=== PATIENT | female | born 1980 | race Caucasian/White ===

== ENCOUNTER 2018-07-08 10:34 | Emergency (ER) | payer OTHER, SELFPAY ==
--- NOTE | 2018-07-08 12:42 | RAD REPORT ---
EXAM DESCRIPTION: CT - Thorax Wo Con - 07/08/2018 12:12 pm CLINICAL HISTORY: Chest pain COMPARISON: None TECHNIQUE: Computed axial tomography of the chest was obtained. Contrast was not requested. All CT scans are performed using dose optimization technique as appropriate and may include automated exposure control or mA/KV adjustment according to patient size. FINDINGS: The evaluation of mediastinum, og and vessels is limited secondary to lack of IV contras t administration. The lungs are clear No mediastinal or hilar lymphadenopathy is seen. Stranding and small amount of fluid is present withi n the anterior mediastinum A pleural effusion is not present. IMPRESSION: Stranding and small amount of fluid within the anterior mediastinum is nonspecific. If t here is clinical suspicion for vascular injury then an enhanced CT scan would be recommended
--- NOTE | 2018-07-08 13:07 | EDPHYS ---
Physician Documentation [facility] Name: Shelby Rodriguez Age: 38 yrs Sex: Female : 1980 Arrival Date: 07/08/2018 Time: 10:36 Bed 14 Private MD: ED Physician Rafael Ingram HPI: 07/08 10:55 This 38 yrs old Female presents to ER via Ambulatory with complaints of Chest rn Wall Pain. 10:55 The patient or guardian reports chest pain that is located primarily in the anterior rn chest wall. The patient or guardian reports chest pain that is located primarily in the anterior chest wall, right. The pain does not radiate. The chest pain is described as aching. Modifying factors: The symptoms are alleviated by remaining still, the symptoms are aggravated by movement, palpation of area. Severity of pain: At its worst the pain was mild in the emergency department the pain is unchanged. The patient has not recently seen a physician. Reports about 3 weeks ago, stretching in AM, felt and heard a pop, has been hurting since then, no cough/sob/hemoptysis, no other trauma. Hurts to move arm and lifts things, hurts just to right of breastbone. . 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 - Social history:: Smoking status: Patient/guardian denies using tobacco. - Ebola Screening: : Patient negative for fever greater than or equal to 101.5 degrees Fahrenheit, and additional compatible Ebola Virus Disease symptoms Patient denies exposure to infectious person Patient denies travel to an Ebola-affected area in the 21 days before illness onset No symptoms or risks identified at this time. - Family history:: not pertinent. - Hospitalizations: : No recent hospitalization is reported. ROS: 10:55 Constitutional: Negative for fever, chills, and weight loss, Eyes: Negative for injury, rn pain, redness, and discharge, Neck: Negative for injury, pain, and swelling, Cardiovascular: Negative for palpitations, and edema, Respiratory: Negative for shortness of breath, cough, wheezing Abdomen/GI: Negative for abdominal pain, nausea, vomiting, diarrhea, and constipation, MS/Extremity: Negative for injury and deformity, Skin: Negative for injury, rash, and discoloration, Neuro: Negative for headache, weakness, numbness, tingling, and seizure. Exam: 10:55 Constitutional: This is a well developed, well nourished patient who is awake, alert, rn and in no acute distress. Chest/axilla: Normal chest wall appearance and motion. Mild tenderness just along right costochondral junction, no crepitus, no ecchymosis, no deformity. Respiratory: No increased work of breathing, no retractions or nasal flaring. Abdomen/GI: soft, non-tender Skin: Warm, dry with normal turgor. Normal color with no rashes, no lesions, and no evidence of cellulitis. Vital Signs: 10:40 BP 123 / 82; Pulse 90; Resp 18 S; Temp 98.2; Pulse Ox 99% on R/A; Pain 7/10; sg 12:30 BP 128 / 77; Pulse 78; Resp 17; Pulse Ox 99% on R/A; tw2 13:42 BP 112 / 74; Pulse 65; Resp 17; Pulse Ox 99% on R/A; tw2 MDM: 10:38 Patient medically screened. rn 13:03 Differential diagnosis: chest wall pain, costochondritis, pleurisy, pneumothorax. Data rn reviewed: vital signs, nurses notes, radiologic studies, CT scan, and as a result, I will discharge patient. Counseling: I had a detailed discussion with the patient and/or guardian regarding: the historical points, exam findings, and any diagnostic results supporting the discharge/admit diagnosis, radiology results, the need for outpatient follow up, to return to the emergency department if symptoms worsen or persist or if there are any questions or concerns that arise at home. Special discussion: Based on the patient's history, exam, and Dx evaluation, there is no indication for emergent intervention or inpatient Tx. It is understood by the patient/guardian that if the Sx's persist or worsen they need to return immediately for re-evaluation. I discussed with the patient/guardian in detail that at this point there is no indication for admission to the hospital. It is understood, however, that if the symptoms persist or worsen the patient needs to return immediately for re-evaluation. ED course: CT chest shows non-specific fluid of anterior mediastinum, no concern for vascular injury given mechanism of stretching, most likely non-specific inflammation from ligament or chondral damage, had long discussion with patient, will place on anti-inflammatories, steroids, and return precautions given. Instructed to f/u with pcp for repeat CT chest with IV contrast to show resolution. . 07/08 11:49 Order name: Urine Dipstick--Ancillary (enter results) eb 07/08 11:49 Order name: Urine --Ancillary (enter results) eb 07/08 10:47 Order name: CT Chest Wo Con; Complete Time: 12:48 rn 07/08 11:21 Order name: Urine Test (obtain specimen); Complete Time: 11:39 rn Administered Medications: 13:20 Drug: Decadron 10 mg Route: IM; Site: right gluteus; tw2 13:43 Follow up: Response: No adverse reaction tw2 Disposition: 07/08/18 13:06 Discharged to Home. Impression: Chest pain, unspecified, Mediastinitis, aseptic, nonspecific. - Condition is Stable. - Discharge Instructions: Nonspecific Chest Pain, Chest Wall Pain. - Prescriptions for Medrol (Salvatore) 4 mg Oral Tablets, Dose Pack - take 1 tablet by ORAL route as directed - follow package instructions; 1 packet. - Medication Reconciliation Form, Thank You Letter, Antibiotic Education, Prescription Opioid Use, Work release form form. - Follow up: Private Physician; When: As needed; Reason: Recheck today's complaints, Re-evaluation by your physician. - Problem is an ongoing problem. - Symptoms have improved. Signatures: Dispatcher [employer] EDBen Manning RN RN sg Nieto, Roman, MD MD rn Wise, Tara, RN RN tw2 Corrections: (The following items were deleted from the chart) 13:43 13:06 07/08/2018 13:06 Discharged to Home. Impression: Chest pain, unspecified; tw2 Mediastinitis, aseptic, nonspecific. Condition is Stable. Forms are Work release form, Medication Reconciliation Form, Thank You Letter, Antibiotic Education, Prescription Opioid Use. Follow up: Private Physician; When: As needed; Reason: Recheck today's complaints, Re-evaluation by your physician. Problem is an ongoing problem. Symptoms have improved. rn
--- NOTE | 2018-07-08 13:07 | ER ---
Nurse's Notes [facility] Name: Shelby Rodriguez Age: 38 yrs Sex: Female : 1980 Arrival Date: 07/08/2018 Time: 10:36 Bed 14 Private MD: Diagnosis: Chest pain, unspecified;Mediastinitis, aseptic, nonspecific Presentation: 07/08 10:39 Presenting complaint: Patient states: On 06/15/17, I woke up and was stretching when I sg heard and felt a loud pop in my chest, it has been hurting ever since, getting worse over the last couple of days. Transition of care: patient was not received from another setting of care. Onset of symptoms was July 08, 2018. Risk Assessment: Do you want to hurt yourself or someone else? Patient reports no desire to harm self or others. Initial Sepsis Screen: Does the patient meet any 2 criteria? No. Patient's initial sepsis screen is negative. Does the patient have a suspected source of infection? No. Patient's initial sepsis screen is negative. Care prior to arrival: None. 10:39 Method Of Arrival: Ambulatory sg 10:39 Acuity: ALAN 4 sg Triage Assessment: 10:50 General: Appears in no apparent distress. Behavior is calm, cooperative, appropriate tw2 for age. Pain: Complains of pain in chest. 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 - Social history:: Smoking status: Patient/guardian denies using tobacco. - Ebola Screening: : Patient negative for fever greater than or equal to 101.5 degrees Fahrenheit, and additional compatible Ebola Virus Disease symptoms Patient denies exposure to infectious person Patient denies travel to an Ebola-affected area in the 21 days before illness onset No symptoms or risks identified at this time. - Family history:: not pertinent. - Hospitalizations: : No recent hospitalization is reported. Screenin:44 Abuse screen: Denies threats or abuse. Nutritional screening: No deficits noted. tw2 Tuberculosis screening: No symptoms or risk factors identified. Fall Risk None identified. Assessment: 10:44 Pain: Pain does not radiate. Pain began 1 hour ago. Cardiovascular: Reports "i heard a tw2 loud pop when i was stretching". 11:30 Reassessment: Patient appears in no apparent distress at this time. No changes from tw2 previously documented assessment. Patient and/or family updated on plan of care and expected duration. Pain level reassessed. Patient is alert, oriented x 3, equal unlabored respirations, skin warm/dry/pink. 12:30 Reassessment: Patient appears in no apparent distress at this time. No changes from tw2 previously documented assessment. Patient and/or family updated on plan of care and expected duration. Pain level reassessed. Patient is alert, oriented x 3, equal unlabored respirations, skin warm/dry/pink. 13:26 Reassessment: Patient appears in no apparent distress at this time. No changes from tw2 previously documented assessment. Patient and/or family updated on plan of care and expected duration. Pain level reassessed. Patient is alert, oriented x 3, equal unlabored respirations, skin warm/dry/pink. 13:43 Reassessment: Patient appears in no apparent distress at this time. No changes from tw2 previously documented assessment. Patient and/or family updated on plan of care and expected duration. Pain level reassessed. Patient is alert, oriented x 3, equal unlabored respirations, skin warm/dry/pink. Vital Signs: 10:40 BP 123 / 82; Pulse 90; Resp 18 S; Temp 98.2; Pulse Ox 99% on R/A; Pain 7/10; sg 12:30 BP 128 / 77; Pulse 78; Resp 17; Pulse Ox 99% on R/A; tw2 13:42 BP 112 / 74; Pulse 65; Resp 17; Pulse Ox 99% on R/A; tw2 ED Course: 10:36 Patient arrived in ED. as 10:38 Rafael Ingram MD is Attending Physician. rn 10:40 Triage completed. sg 10:42 Arm band placed on. sg 10:43 Kathy Albrecht, NA is Primary Nurse. tw2 10:43 Bed in low position. Call light in reach. potline monitor on. Pulse ox on. NIBP on. tw2 10:44 Patient maintains SpO2 saturation greater than 95% on room air. tw2 10:53 Radiology exam delayed due to test not completed at this time. mw3 11:51 Urine collected: clean catch specimen, cloudy, fausto colored. jb1 11:[address] vr 12:11 CT completed. Patient tolerated procedure well. Patient moved back from CT. vr 12:12 CT Chest Wo Con In Process Unspecified. EDMS 13:24 Awaiting: medication observation after IM injection. tw2 13:42 No provider procedures requiring assistance completed. Patient did not have IV access tw2 during this emergency room visit. Administered Medications: 13:20 Drug: Decadron 10 mg Route: IM; Site: right gluteus; tw2 13:43 Follow up: Response: No adverse reaction tw2 Outcome: 13:06 Discharge ordered by . rn 13:42 Discharged to home ambulatory. tw2 13:42 Condition: stable 13:42 Discharge instructions given to patient, Instructed on discharge instructions, follow up and referral plans. medication usage, Demonstrated understanding of instructions, follow-up care, medications, Prescriptions given X 1. 13:43 Patient left the ED. tw2 Signatures: Dispatcher [employer] EDMS Ryder Kern jb1 Ben Ro, RN Stacie Dang Roman, MD MD rn Davis, Victoria vr Wise, Tara, RN RN tw2 Layne Cahndler mw3
[2018-07-08] MEDS ORDERED: DEXAMETHASONE 4 MG/ML VIAL ONE (13:30)
[2018-07-08 16:36] LABS: Urine Blood NEGATIVE (NEG); Urine Glucose NEGATIVE (NEG); Urine Protein TRACE (NEG); Urine pH 6.5 (5.0-7.0)
== END 2018-07-08 13:43 | disposition home or self-care (01) ==
LOC: ER 10:34
DX: J98.51 Mediastinitis (principal)
CPT/HCPCS: 71250; 81003; 81025; 96372; 99285

== ENCOUNTER 2018-08-30 16:07 | Emergency (ER) | payer OTHER ==
[2018-08-30] MEDS ORDERED: METOCLOPRAMIDE 10 MG/2mL INJ ONE (18:04)
[2018-08-30] MEDS ORDERED: NA CHLORIDE 0.9% 500 ML ONE (18:05)
--- NOTE | 2018-08-30 18:39 | RAD REPORT ---
EXAM DESCRIPTION: CT - Head Brain Wo Cont - 08/30/2018 6:33 pm CLINICAL HISTORY: HEADACHE COMPARISON: <Comparisons> TECHNIQUE: All CT scans are performed using dose optimization technique as appropriate and may inclu de automated exposure control or mA/KV adjustment according to patient size. FINDINGS: No intracranial hemorrhage, hydrocephalus or extra-axial fluid collection.No areas of brai n edema or evidence of midline shift. The paranasal sinuses and mastoids are clear. The calvarium is intact. IMPRESSION: No acute intracranial abnormality.
[2018-08-30] MEDS ORDERED: DEXAMETHASONE 10 MG/ML VIAL ONE (19:17)
--- NOTE | 2018-08-30 19:28 | EDPHYS ---
Physician Documentation [facility] Name: Shelby Rodriguez Age: 38 yrs Sex: Female : 1980 Arrival Date: 08/30/2018 Time: 16:10 Bed 25 Private MD: ED Physician Pancho Burns HPI: 08/30 17:47 This 38 yrs old Female presents to ER via Ambulatory with complaints of jmm Headache. 17:47 The patient complains of pain to the left frontal area, left side of the back of head, jmm right frontal area and right side of the back of head. Onset: The symptoms/episode began/occurred gradually, 1 day(s) ago. Associated signs and symptoms: Pertinent positives: Photophobia Pertinent negatives: neck stiffness. This is a 38 year old female with no chronic medical conditions that presents to the ED with complaints of headache which began yesterday. Patient states she has had ongoing similar headache for years. Patient took alieve earlier today with no relief. Denies fever, denies neck stiffness. Headache is gradual onset. . 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 - Social history:: Smoking status: unknown. - Ebola Screening: : No symptoms or risks identified at this time. ROS: 17:47 Constitutional: Negative for fever, chills, and weight loss, Cardiovascular: Negative jmm for chest pain, palpitations, and edema, Respiratory: Negative for shortness of breath, cough, wheezing, and pleuritic chest pain. 17:47 Neuro: Positive for headache. 17:47 All other systems are negative. Exam: 17:47 Constitutional: This is a well developed, well nourished patient who is awake, alert, jmm and in no acute distress. Head/Face: atraumatic. Eyes: EOMI, no conjunctival erythema appreciated ENT: Moist Mucus Membranes Neck: Trachea midline, Supple Chest/axilla: Normal chest wall appearance and motion. Cardiovascular: Regular rate and rhythm. No edema appreciated Respiratory: Normal respirations, no respiratory distress appreciated Abdomen/GI: Non distended, soft Back: Normal ROM Skin: General appearance color normal MS/ Extremity: Moves all extremities, no obvious deformities appreciated, no edema noted to the lower extremities Neuro: Awake and alert, normal gait Psych: Behavior is normal, Mood is normal, Patient is cooperative and pleasant 17:47 Neuro: Cerebellar function: is grossly normal, Motor: is normal, Gait: is steady. 17:47 Psych: Behavior/mood is pleasant, cooperative. Vital Signs: 16:14 BP 140 / 96; Pulse 65; Resp 18; Temp 98.0(TE); Pulse Ox 100% on R/A; Weight 68.04 kg; hj Height 5 ft. 4 in. (162.56 cm); Pain 7/10; 18:12 BP 134 / 75; Pulse 61; Resp 16; Temp 98; Pulse Ox 100% ; rv 19:07 BP 133 / 72; Pulse 62; Resp 16; Temp 97.6; Pulse Ox 100% ; rv 16:14 Body Mass Index 25.75 (68.04 kg, 162.56 cm) MDM: 17:47 [facility] medically screened. [facility] 19:23 Data reviewed: vital signs, nurses notes. Counseling: I had a detailed discussion with [facility] the patient and/or guardian regarding: the historical points, exam findings, and any diagnostic results supporting the discharge/admit diagnosis, lab results, radiology results, the need for outpatient follow up, to return to the emergency department if symptoms worsen or persist or if there are any questions or concerns that arise at home. 19:26 ED course: Headache relieved in the ED. Patient is advised to follow up with neuro. I momom do not suspect SAH or meningitis. Patient was otherwise given strict return precautions. . 08/30 18:13 Order name: CT Head Brain wo Cont; Complete Time: 18:41 [facility] 08/30 17:47 Order name: Saline Lock; Complete Time: 18:04 [facility] Administered Medications: 17:55 Drug: Reglan 10 mg Route: IVP; Site: left antecubital; rv 18:54 Follow up: Response: Marked relief of symptoms rv 17:55 Drug: NS 0.9% 500 ml Route: IV; Rate: bolus; Site: left antecubital; rv 18:54 Follow up: IV Status: Completed infusion; IV Intake: 500ml rv 19:06 Drug: Decadron - Dexamethasone 10 mg Route: IVP; Site: left antecubital; rv 19:35 Follow up: Response: No adverse reaction; Marked relief of symptoms rv Disposition: 08/31 07:01 Co-signature as Attending Physician, Pancho Burns MD I agree with the assessment and kdr plan of care. Disposition: 08/30/18 19:27 Discharged to Home. Impression: Headache. - Condition is Stable. - Discharge Instructions: General Headache Without Cause. - Medication Reconciliation Form, Thank You Letter, Antibiotic Education, Prescription Opioid Use form. - Follow up: Aman Lux MD; When: 2 - 3 days; Reason: Recheck today's complaints, Continuance of care, Re-evaluation by your physician. Signatures: Dispatcher [employer] EDMS Pancho Burns MD MD kdr Mickail, Joel, PA PA jmm Joaquin, Henry, RN RN Riley Mars RN RN rv Corrections: (The following items were deleted from the chart) 08/30 19:35 19:27 08/30/2018 19:27 Discharged to Home. Impression: Headache. Condition is Stable. rv Forms are Medication Reconciliation Form, Thank You Letter, Antibiotic Education, Prescription Opioid Use. Follow up: Aman Lux; When: 2 - 3 days; Reason: Recheck today's complaints, Continuance of care, Re-evaluation by your physician. goldie
--- NOTE | 2018-08-30 19:28 | ER ---
Nurse's Notes [facility] Name: Shelby Rodriguez Age: 38 yrs Sex: Female : 1980 Arrival Date: 08/30/2018 Time: 16:10 Bed 25 Private MD: Diagnosis: Headache Presentation: 08/30 16:12 Presenting complaint: Patient states: my head hurts so bad its hard to function, it hj started this morning; took tabs of Excedrin thi AM; pain is 7/10; hx of migraine;. Transition of care: patient was not received from another setting of care. Onset of symptoms was August 30, 2018. Risk Assessment: Do you want to hurt yourself or someone else? Patient reports no desire to harm self or others. Initial Sepsis Screen: Does the patient meet any 2 criteria? No. Patient's initial sepsis screen is negative. Does the patient have a suspected source of infection? No. Patient's initial sepsis screen is negative. Care prior to arrival: None. 16:12 Method Of Arrival: Ambulatory 16:12 Acuity: ALAN 3 Triage Assessment: 18:10 Headache History: Denies prior headaches. General: Appears in no apparent distress. rv uncomfortable, Behavior is calm, cooperative. Pain: Pain currently is 7 out of 10 on a pain scale. Pain began suddenly, Also complains of no other associated symptoms. 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 - Social history:: Smoking status: unknown. - Ebola Screening: : No symptoms or risks identified at this time. Screenin:09 Abuse screen: Denies threats or abuse. Denies injuries from another. Nutritional rv screening: No deficits noted. Tuberculosis screening:. Fall Risk None identified. Assessment: 18:08 General: Appears in no apparent distress. comfortable, Behavior is calm, cooperative. rv Pain: Denies pain. Neuro: Level of Consciousness is awake, alert, obeys commands, Oriented to person, place, time, situation, Reports headache. Cardiovascular: Capillary refill < 3 seconds. Respiratory: Airway is patent. GI: No signs and/or symptoms were reported involving the gastrointestinal system. : No signs and/or symptoms were reported regarding the genitourinary system. EENT: No signs and/or symptoms were reported regarding the EENT system. Derm: Skin is intact. Musculoskeletal: No signs and/or symptoms reported regarding the musculoskeletal system. Vital Signs: 16:14 BP 140 / 96; Pulse 65; Resp 18; Temp 98.0(TE); Pulse Ox 100% on R/A; Weight 68.04 kg; hj Height 5 ft. 4 in. (162.56 cm); Pain 7/10; 18:12 BP 134 / 75; Pulse 61; Resp 16; Temp 98; Pulse Ox 100% ; rv 19:07 BP 133 / 72; Pulse 62; Resp 16; Temp 97.6; Pulse Ox 100% ; rv 16:14 Body Mass Index 25.75 (68.04 kg, 162.56 cm) hj ED Course: 16:10 Patient arrived in ED. as 16:13 Triage completed. hj 16:14 Arm band placed on right wrist. hj 17:18 Riley Cason, NA is Primary Nurse. rv 17:21 Agustin Whitehead PA is PHCP. [facility] 17:21 Pancho Burns MD is Attending Physician. jmm 17:55 Inserted saline lock: 22 gauge in left antecubital area, using aseptic technique. rv 18:10 Patient has correct armband on for positive identification. Bed in low position. Call rv light in reach. Side rails up X 1. Pulse ox on. NIBP on. 18:33 CT completed. Patient tolerated procedure well. Patient moved to CT. Patient moved back id from CT. 18:34 CT Head Brain wo Cont In Process Unspecified. EDMS 19:07 No provider procedures requiring assistance completed. IV discontinued, intact, rv bleeding controlled, No redness/swelling at site. Pressure dressing applied. 19:27 Aman Lux MD is Referral Physician. [facility] Administered Medications: 17:55 Drug: Reglan 10 mg Route: IVP; Site: left antecubital; rv 18:54 Follow up: Response: Marked relief of symptoms rv 17:55 Drug: NS 0.9% 500 ml Route: IV; Rate: bolus; Site: left antecubital; rv 18:54 Follow up: IV Status: Completed infusion; IV Intake: 500ml rv 19:06 Drug: Decadron - Dexamethasone 10 mg Route: IVP; Site: left antecubital; rv 19:35 Follow up: Response: No adverse reaction; Marked relief of symptoms rv Intake: 18:54 IV: 500ml; Total: 500ml. rv Outcome: 19:08 Discharged to home ambulatory. rv 19:08 Condition: good 19:08 Discharge instructions given to patient, Instructed on discharge instructions, follow up and referral plans. medication usage, Demonstrated understanding of instructions, follow-up care, medications. 19:27 Discharge ordered by MD. [email or web address] 19:35 Patient left the ED. rv Signatures: Dispatcher [employer] EDMS Agustin Whitehead PA PA jmm Martinez, Amelia as Joaquin, Henry RN RN Solo Stover Ronaldo, RN RN rv Corrections: (The following items were deleted from the chart) 16:15 16:14 68.04 kg; Height 5 ft. 4 in.; BMI: 25.7; Pain 7/10; hj hj 16:15 16:14 Pulse 65bpm; Resp 18bpm; Pulse Ox 100% RA; Temp 98.0F Temporal; 68.04 kg; Height hj 5 ft. 4 in.; BMI: 25.7; Pain 7/10; hj
== END 2018-08-30 19:35 | disposition home or self-care (01) ==
LOC: ER 16:07
DX: R51 Headache (principal)
CPT/HCPCS: 70450; 96361; 96374; 96375; 99284; J1100; J2765